=== PATIENT | female | born 2000 | race African-American/Black ===

== ENCOUNTER 2021-02-01 12:27 | Emergency (ER) | payer SELFPAY ==
--- NOTE | 2021-02-01 12:58 | ED.ABDPAIN ---
HPI - Abdominal Pain General Chief Complaint: Abdominal Pain Stated Complaint: ABD PAIN/HEADACHE/SOB Time Seen by Provider: 02/01/21 13:00 Source: patient and RN notes reviewed Mode of arrival: ambulatory Limitations: no limitations History of Present Illness HPI narrative: 20-year-old female presents with concern for several day history of feeling of shortness of breath, lower abdominal cramping. She reports a lifetime history of migraines and has also had migraines in the last several days. She denies current headache, current abdominal pain. She denies any nausea, vomiting, diarrhea, constipation. Reports her last menstrual period ended on Sunday, it was normal. She denies cough, rhinorrhea, nasal congestion. She denies history of asthma or other breathing problems. She does not vape or smoke. She has not been vaccinated for Covid. Reports she is taken Aleve which helps her headache. MD elicited complaint: abdominal pain Related Data Allergies Allergy/AdvReac Type Severity Reaction Status Date / Time strawberry Allergy Hives Verified 02/01/21 13:01 Review of Systems Review of Systems: Narrative: CONSTITUTIONAL: Denies malaise, chills, sweats, or fever. EYES: Denies visual changes, redness, or discharge. ENT: Denies rhinorrhea, congestion, sinus pain, otalgia or sore throat. CARDIOVASCULAR: Denies chest pain, palpitations, or edema. RESPIRATORY: Denies cough. Reports intermittent dyspnea. GASTROINTESTINAL: Denies abdominal pain, nausea, vomiting, diarrhea, bloody, or mucous stools. Reports lower abdominal cramping GENITOURINARY: Denies dysuria or hematuria. MUSCULOSKELETAL: Denies myalgia. NEUROLOGIC: Reports history of migraines, does not currently have a headache All systems reviewed & are unremarkable except as noted in HPI and below PMFSH Comments At time of signature, agree with nursing past medical, surgical, social and family history. There is no relevant family history pertinent to the presenting complaint Exam Narrative: Exam Narrative: GENERAL: Well-appearing, well-nourished, and in no acute distress. HEAD: Normocephalic, atraumatic. EYES: PERRLA, conjunctivae clear, and EOMI. No nystagmus. ENT: Nares clear. Mucous membranes moist. NECK: Supple. CHEST: No respiratory distress. Clear to auscultation. No bony deformities, no asymmetry. Speaks in full sentences. HEART: Regular rate and rhythm. No murmur heard. Normal peripheral pulses. ABDOMEN: Soft, nontender, nondistended, normal active bowel sounds, no palpable masses. SKIN: Warm, dry, no rash. NEURO: Alert and oriented x3. No focal deficits. PSYCH: Normal mood and affect Course Course Emergency Course: Patient is aware of diagnosis, understands and agrees to treatment plan. Anticipatory guidance given. Patient agrees to follow-up as directed and is aware of reasons to seek care at the emergency department. Portions of this record may have been created with voice recognition software Vital Signs Vital signs: Vital Signs Temperature 98.1 F 02/01/21 13:00 Pulse Rate 64 02/01/21 13:00 Respiratory Rate 16 02/01/21 13:00 Blood Pressure 123/86 02/01/21 13:00 Pulse Oximetry 100 02/01/21 13:00 Temperature 98.1 F 02/01/21 13:00 Pulse Rate 64 02/01/21 13:00 Respiratory Rate 16 02/01/21 13:00 Blood Pressure 123/86 02/01/21 13:00 Pulse Oximetry 100 02/01/21 13:00 Reviewed. MDM - Abdominal Pain MDM Narrative Medical decision making narrative: No evidence of pancreatitis, AAA, cholecystitis, choledocholithiasis, cholangitis, mesenteric ischemia, small bowel obstruction, diverticulitis, colitis, appendicitis, or pelvic etiology such as ovarian torsion, TOA, or ectopic . Patient has no history of peptic ulcer, H. pylori, chronic aspirin NSAID or corticosteroid use, chronic alcohol use, no history of inflammatory bowel disease, no history of active abdominal infection or malignancy. Patient has no history of herni
[2021-02-01 13:00] VITALS: BP 123/86; PULSE 64; RESP 16; TEMP 36.7; O2SAT 100
== END 2021-02-01 13:38 | disposition home or self-care (01) ==
PROVIDERS: Emergency Provider Nurse Practitioner
DX: R10.30 Lower abdominal pain, unspecified (principal)
CPT/HCPCS: 99211; G0463